=== PATIENT | female | born 1985 | race Caucasian/White ===

== ENCOUNTER 2024-11-09 14:08 | Outpatient (CLI) | payer BC, SELFPAY ==
--- OUTSIDE RECORDS SUMMARY | 2024-11-09 14:13 | XMS_ITS | Clinical Summary ---
Author Organization [facility] Address [address] [place] [address] Care Team Providers Care Telescope Repairer Name Role Phone Ashlee Zhang Primary Care Provider [phone] Allergies No known active allergies Medications multivitamin (MULTI-DAY ORAL) Take by mouth daily Active cetirizine (ZyrTEC) 10 mg capsule Active cholecalciferol , vitD3,/vit K2 (D3 PLUS K2 DOTS ORAL) Take by mouth Activ e levonorgestrel & ethinyl estradiol (AMETHIA) 0.15 mg-30 mcg tablets,dose pack,3 month Take 1 tablet by mouth daily 4 Active testosterone (ANDRODERM) 2 mg/[address] the skin Active aluminum-magnes ium hydroxide suspension 200-200 mg/5 mL Take by mouth every 6 (six) hours as needed for heartburn Active Active Problems Problem Noted Date Diagnosed Date Annual physical exam 10/17/2024 Assessment & Plan (10/17/2024 8:30 AM CDT): Exercise 5 days a week, 30 mins per day recommended. Eat a heart healthy diet consisting of good, healthy protein (eggs, nuts, peanut butter, chicken, fish, turkey, less pork/beef), lots of vegetables, less carbohydrates and less sugar. Annual physical recommended. Perimenopause 10/17/2024 Assessment & Plan (10/17/2024 8:30 AM CDT): Tendinitis 06/19/2011 Encounters Date Type Department Care Team Description 10/17/2024 8:30 AM CDT Lab [facility] [address] [place] [address] Screening for thyroid disorder; Screening, ischemic heart disease; Screening for diabetes mellitus; Screening for blood disease; Encounter for vitamin deficiency screening 10/17/2024 8:00 AM CDT Office Visit [facility] [address] [phone] Ashlee Zhang PA Annual physical exam (Primary Dx); Perimenopause; Screening for thyroid disorder; Screening, ischemic heart disease; Screening for diabetes mellitus; Screening for blood disease; Encounter for vitamin deficiency screening 10/17/2024 Results Follow-Up [facility] [address] [phone] Ashlee Zhang PA Thyroid Function [place], Lipid panel, Comprehensive metabolic panel, Additional followed-up results: 3 08/26/2024 1:30 PM CDT Office Visit [facility] [address] [place] [address] Ana Wheeler MD Perimenopause (Primary Dx); Increased risk of breast cancer from Last 3 Months Immunizations Immunization Administration Dates Next Due Hep A, Adult 04/20/2011 Hep B Vaccine 07/09/2021 Influenza, Unspecified 01/19/2024(Deferr ed: Patient decision),01/18/2023(Deferred: Patient decision) MMR 04/02/1993 Tdap 04/25/2019 Tetanus toxoid, adsorbed 04/20/2005 Surgical History Surgery Date Site/Laterality Comments GANGLION CYST EXCISION Medical History Medical History Date Comments Increased risk of breast cancer 28% per patient. Family History Medical History Relation Name Comments No Known Problems Brother Leukemia Father Ovarian cancer Maternal Grandmother Breast cancer Mother with concurren t hyst due to MGM ovarian cancer Dementia Mother No Known Problems Sister Colon cancer Neg Hx Uterine cancer Neg Hx Relation Name Status Comments Brother Alive Father Alive Maternal Grandfather Maternal Grandmother Mother Alive Paternal Grandfather Paternal Grandmother Sister Alive Social History Tobacco Use Types Packs/Day Years Used Date Smoking Tobacco: Never Smokeless Tobacco: Never Tobacco Cessation:Counseling Given: Not Answered AUDIT-C Answer Date Recorded Q1: How often do you have a drink containing alc ohol? 2-4 times a month 10/17/2024 Q2: How many drinks containi ng alcohol do you have on a typical day when you are drinking? 1 or 2 10/17/2024 Q3: How often do you have si x or more drinks on one occasion? 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 Gender Identity Female 07/14/2022 5:42 PM CDT Sexual Orientation Straight 07/14/2022 5: 42 PM CDT Obstetrics History Para Term AB IAB SAB Ectopic Multiple Livin g Live Births 0 0 0 0 0 0 0 0 0 0 0 Last Filed Vital Signs Vital Sign Reading Time Taken Comments Blood Pressure 110/68 10/17/2024 7:37 AM CDT Pulse 82 10/17/2024 7:37 AM CDT Temperature 36.9 C (98.5 F) 10/17/2024 7:37 AM CDT Respiratory Rate 16 10/17/2024 7:37 AM CDT Oxygen Saturation 97% 10/17/2024 7:37 AM CDT Inhaled Oxygen Concentration - - Weight 76.4 kg (168 lb 8 oz) 10/17/2024 7:37 AM CDT Height 172.7 cm (5' 8) 10/17/2024 7:37 AM CDT Body Mass Index 25.62 10/17/2024 7:37 AM CDT Plan of Treatment Health Maintenance Due Date Last Done Comments Cervical Cancer Screening 1984 Hepatitis C Screening 1984 Varicella Vaccines (1 of 2 - 13+ 2-dose series) 02/22/1997 Influenza Vaccine (#1) 2024 Breast Cancer Screening-Mammogram 01/03/2025 01/04/2024, 10/20/2022, 10/20/2022, Additional history exists Depression Screening 10/17/2025 10/17/2024, 10/18/19 25 Regular Well Visit/Exam 18-64 10/17/2025 10/17/2024 DTaP/Tdap/Td Vaccine (2 - Td or Tdap) 04/25/2029 04/25/2019, 04/20/2005 Hepatitis B Screening Completed 07/09/2021 HPV Vaccines Aged Out No longer eligi ble based on patient's age to complete this topic Pneumococcal vaccine <65 Aged Out No longer eligible based on patient's age to complete this topic Procedures Procedure Name Priority Date/Time Associated Diagnosis Comments EGFR Routine 10/17/2024 8:16 AM CDT Screening for diabetes mellitus VITAMIN D 25 HYDROXY Routine 10/17/2024 8:16 AM CDT Encounter for vitamin deficiency screening CBC WITHOUT DIFFERENTIAL Routine 10/17/2024 8:16 AM CDT Screening for blood disease COMPREHENSIVE METABOLIC PANEL Routine 10/17/2024 8:16 AM CDT Screening for diabetes mellitus LIPID PANEL Routine 10/17/2024 8:16 AM CDT Screening, ischemic heart disease THYROID FUNCTION CASCADE Routine 10/17/2024 8:16 AM CDT Screening for thyroid disorder SCREENING MAMMOGRAM BILATERAL W ARIC Schedule Routine, Read Routine (OP Routine) 01/04/2024 2:28 PM CDT Encounter for other screening for malignant neoplasm of breast from Last 3 Months or Most Recently Relevant to Health Maintenance Results * eGFR (10/17/2024 8:16 AM CDT) eGFR 78 >=60 mL/min/1. 73 m2 Comment: Interpretive Data Reference Interval Normal >/= 90 mL/min/1.73m2 Mildly decreased* 60 - 89 mL/min/1.73m2 Mildly to moderately decreased 45 - 59 mL/min/1.73m2 Moderately to severely decreased 30 - 44 mL/min/1.73m2 Severely decreased 15 - 29 mL/min/1.73m2 Kidney Failure < 15 mL/min/1.73m2 *Relative to young adult level Estimated glomerular filtration rate is determined by the 2020 CKD-EPI equation recommended by the National Kidney Foundation (A Unifying Approach to GFR Estimation: Recommendations of the NKF-ASK Task Force on Reassessing the Inclusion of Race in Diagnosing Kidney Disease, JASN 2020). The CKD-EPI equation should not be used for patients with unstable renal function and has not been validated in children and those over 70. Current interpretive data was last reviewed 2021. Testing performed by: [address] [address] Blood 10/17/2024 8:16 AM CDT 10/17/2024 11:18 AM CDT Ashlee VAZQUEZ LAB BLOOD ORDERABLES Final Resul t Performing Organization Address City/[facility] Co de Phone Number [address] [place] [address] * Thyroid Function [place] (10/17/2024 8:16 AM CDT) TSH 2.05 0.30 - 4.20 mcIUnit/mL Comment:Testing performed by : [address] [address] Blood 10/17/2024 8:16 AM CDT 10/17/2024 11:18 AM CDT Ashlee VAZQUEZ LAB BLOOD ORDERABLES Final Resul t Performing Organization Address City/[facility]/ZIP Co de Phone Number [address] [place] [address] * (ABNORMAL) Vitamin D 25 hydroxy (10/17/2024 8:16 AM CDT) Vitamin D 25-OH 120.0(H) 30.0 - 80.0 ng/mL Blood 10/17/2024 8:16 AM CDT 10/17/2024 12:22 PM CDT us Ashlee VAZQUEZ LAB BLOOD ORDERABLES Final Resul t NAFISA [address] [facility] Department [place] [address] * CBC without differential (10/17/2024 8:16 AM CDT) WBC 6.53 3.80 - 9.90 K/cumm Comment:Testing performed by : [address] [address] Hgb 14.7 11.9 - 15.5 g/dL NAFISA Comment:Testing performed by : [address] [address] Hct 43.1 35.6 - 45.5 % NAFISA Comment:Testing performed by : [address] [address] Plt 249 150 - 400 K/cumm NAFISA Comment:Testing performed by : [address], [address] MPV 10.9 9.1 - 12.3 fL NAFISA Comment:Testing performed by : [address], [address] RBC 4.82 3.90 - 5.20 M/cumm NAFISA Comment:Testing performed by : [address] [address] MCV 89.4 81.3 - 96.4 fL NAFISA Comment:Testing performed by : [address] [address] MCH 30.5 27.1 - 33.3 pg NAFISA Comment:Testing performed by : [address], [address] MCHC 34.1 32.3 - 35.7 g/dL NAFISA Comment:Testing performed by : [address] [address] RDW CV 12.5 11.1 - 14.9 % NAFISA Comment:Testing performed by : [address], [address] RDW SD 40.9 35.7 - 48.1 fL NAFISA WEN Comment:Testing performed by : [facility], [address] [place] [address]., [address] NRBC abs 0.00 0.00 - 0.01 K/cumm NAFISA WEN Comment:Testing performed by : [facility], [address] [place] [address]., [address] Blood 10/17/2024 8:16 AM CDT 10/17/2024 11:18 AM CDT us Ashlee VAZQUEZ LAB BLOOD ORDERABLES Final Resul t NAFISA WEN [address] [facility] Department [place] [address] * (ABNORMAL) Lipid panel (10/17/2024 8:16 AM CDT) Cholesterol 154 30 - 199 mg/dL Comment: Interpretive Data Ages < or = 19 years Acceptable: <170 mg/dL Borderline high: 170-199 mg/dL High: >or= 200 mg/dL Ages > or = 20 years Desirable: <200 mg/dL Borderline high: 200-239 mg/dL High: >or= 240 mg/dL Literature References: 1. Expert Panel on Integrated Guidelines for Cardiovascular Health and Risk Reduction in Children and Adolescents. Pediatrics 2011;128:S213 2. NCEP Expert Panel. Circulation 2004;110:227 Current Interpretive Data was last revised on 2017. Testing performed by: [facility], [address] [place] [address]., [address] Triglycerides 107 <=149 mg/dL NAFISA WEN Comment: Interpretive Data Ages < or = 9 years Acceptable: <75 mg/dL Borderline high: 75-99 mg/dL High: >or= 100 mg/dL Ages 10 to 20 years Acceptable: <90 mg/dL Borderline high: 90-129 mg/dL High: >or= 130 mg/dL Ages > or = 20 years Desirable: <150 mg/dL Borderline high: 150-199 mg/dL High: 200-499 mg/dL Very high: >or= 499 mg/dL Literature References: 1. Expert Panel on Integrated Guidelines for Cardiovascular Health and Risk Reduction in Children and Adolescents. Pediatrics 2011;128:S213 2. NCEP Expert Panel. Circulation 2004;110:227 Current Interpretive Data was last revised on 2017. Testing performed by: [address] [address] HDL 33(L) >=40 mg/dL NAFISA Comment: Interpretive Data Ages < or = 19 years Acceptable: >45 mg/dL Borderline low: 40-45 mg/dL Low: <40 mg/dL Ages > or = 20 years Desirable: >or= 60 mg/dL Low: <40 mg/dL Literature References: 1. Expert Panel on Integrated Guidelines for Cardiovascular Health and Risk Reduction in Children and Adolescents. Pediatrics 2011;128:S213 2. NCEP Expert Panel. Circulation 2004;110:227 Current Interpretive Data was last revised on 2017. Testing performed by: [address] [address] LDL, calculated 101 <=129 mg/dL NAFISA Comment: Interpretive Data Ages < or = 19 years Acceptable: <110 mg/dL Borderline high: 110-129 mg/dL High: >or= 130 mg/dL Ages > or = 20 years Optimal: <100 mg/dL Near optimal: 100-129 mg/dL Borderline high: 130-159 mg/dL High: >160 mg/dL Calculated using the Jorge LDL-C estimating equation. This equation was implemented on 2023. Prior to this date LDL-C was estimated using the Friedewald equation. Literature References: 1. Expert Panel on Integrated Guidelines for Cardiovascular Health and Risk Reduction in Children and Adolescents. Pediatrics 2011;128:S213 2. NCEP Expert Panel. Circulation 2004;110:227 3. Jorge Álvarez et al. CARMEN Cardiol. 2020 August 18;5(5):540-548. doi: 10.1001/[email or web address] Current Interpretive Data was last revised on 2023. Testing performed by: [address] [address] Non-HDL Cholesterol 121 mg/dL NAFISA Comment: Interpretive Data Ages < or = 19 years Acceptable: <120 mg/dL Borderline high: 120-144 mg/dL High: >145 mg/dL Ages > or = 20 years When triglycerides are >200 mg/dL, Non-HDL cholesterol is a secondary target of therapy with treatment goals that are 30 mg/dL greater than the LDL cholesterol target. Literature References: 1. Expert Panel on Integrated Guidelines for Cardiovascular Health and Risk Reduction in Children and Adolescents. Pediatrics 2011;128:S213 2. NCEP Expert Panel. Circulation 2004;110:227 Current Interpretive Data was last revised on 2017. Testing performed by: [address] [address] Chol/HDL ratio 5 NAFISA Comment:Testing performed by : [address] [address] Blood 10/17/2024 8:16 AM CDT 10/17/2024 11:18 AM CDT us Ashlee VAZQUEZ LAB BLOOD ORDERABLES Final Resul t NAFISA [facility] Department [place] [address] * Comprehensive metabolic panel (10/17/2024 8:16 AM CDT) Sodium 139 135 - 145 mmol/L Comment:Testing performed by : [address] [address] Potassium, pl 3.9 3.3 - 4.9 mmol/L NAFISA Comment:Testing performed by : [address] [address] Chloride 105 97 - 110 mmol/L NAFISA Comment:Testing performed by : [address] [address] CO2 25 22 - 32 mmol/L NAFISA Comment:Testing performed by : [address] [address] Anion gap 9 2 - 15 mmol/L NAFISA Comment:Testing performed by : [address] [address] BUN 14 6 - 25 mg/dL NAFISA Comment:Testing performed by : [address] [address] Creatinine 0.95 0.60 - 1.10 mg/dL NAFISA Comment:Testing performed by : [address] [address] Glucose 96 70 - 199 mg/dL NAFISA Comment: Interpretive Data Fasting glucose >/= 126 mg/dl is diagnostic for diabetes. Fasting is defined as no caloric intake for at least 8 hours. Fasting glucose between 100 mg/dl to 125 mg/dl is diagnostic of prediabetes. In a patient with classic symptoms of hyperglycemia or hyperglycemic crisis, a random glucose >/= 200 mg/dl is diagnostic for diabetes. In the absence of unequivocal hyperglycemia, results should be confirmed by repeat testing. The classification and Diagnosis of Diabetes Diabetes Care 202; 46: S19-S40. Current interpretive data was last revised 2022. Testing performed by: [address] [address] Calcium 9.4 8.5 - 10.3 mg/dL NAFISA Comment:Testing performed by : [address] [address] Bilirubin, total 0.3 0.1 - 1.2 mg/dL [employer] [facility] Comment:Testing performed by : [address] [address] Protein, pl 7.4 6.5 - 8.5 g/dL NAFISA Comment:Testing performed by : [address] [address] Albumin 4.1 3.5 - 5.0 g/dL [facility] Comment:Testing performed by : [address] [address] Alk phos 50 40 - 130 Units/L NAFISA Comment:Testing performed by : [address] [address] ALT 16 7 - 45 Units/L NAFISA Comment:Testing performed by : [address] [address] AST 26 10 - 45 Units/L NAFISA Comment:Testing performed by : [address] [address] Blood 10/17/2024 8:16 AM CDT 10/17/2024 11:18 AM CDT Ashlee VAZQUEZ LAB BLOOD ORDERABLES Final Resul t NAFISA [address] [facility] Department [place] [address] * Screening Mammogram Bilateral W Aric (01/04/2024 2:28 PM CDT) Anatomical Region Laterality Modality Breast Bilateral Mammography Impressions 01/07/2024 1:21 PM CDT BI-RADS ATLAS category (overall): 1 - Negative There is no mammographic evidence of malignancy. A 1 year screening mammogram is recommended. The patient has been or will be contacted. We recommend annual screening mammography for women at average risk of breast cancer beginning at age 40, based on guidelines of the [place] [employer] (ACR Practice Parameter for the Performance of Screening and Diagnostic Mammography) and [place] [employer]. For women with and elevated risk of breast cancer, please refer to the ACR Practice Parameter for specific screening recommendations. The patient will be entered into a reminder system with a target due date of 1 year for her next screening exam. Narrative 01/07/2024 1:21 PM CDT Screening Mammogram Bilateral W Aric: 01/04/24 The study was acquired using full field digital technology and interpreted from soft copy. 2D digital mammographic views, as well as 3D digital tomosynthesis were performed in the CC and MLO projections. CLINICAL: Encounter for other screening for malignant neoplasm of breast. No relevant medical history has been documented for this patient. No known family history of breast cancer. COMPARISONS: 10/20/2022 Breast Imaging Screening Outside Reference 10/04/2021 Breast Imaging Screening Outside Reference 09/15/2020 Screening Mammogram Bilateral W Aric 06/01/2019 Screening Mammogram Bilateral W Aric BREAST TISSUE: The breasts are extremely dense, which lowers the sensitivity of mammography. FINDINGS: No suspicious masses, suspicious calcifications, or other suspicious findings are seen within either breast. There has been no suspicious change. 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
--- OUTSIDE RECORDS SUMMARY | 2024-11-09 14:13 | XMS_ITS | Encounter Summary ---
Author Organization [facility] Healthcare Address [address] [place] [address] Care Team Providers Care Eye Specialist Name Role Phone Ashlee Zhang Primary Care Provider [phone] Encounter Details Date Type Department Care Team (Latest Contact Info) Description 10/17/2024 Results Follow-Up [facility] Family Medicine [address] [phone] Ashlee Zhang PA [address] [phone] Thyroid Function [place], Lipid panel, Comprehensive metabolic panel, Additional followed-up results: 3 Social History Tobacco Use Types Packs/Day Years Used Date Smoking Tobacco: Never Smokeless Tobacco: Never AUDIT-C Answer Date Recorded Q1: How often [...] on file 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 2-4 times a month 10/17/2024 7:37 AM Mckayla Pascual MA Q2: How many drinks containing alcohol do you have on a typical day when you are drinking? 1 or 2 10/17/2024 7:37 AM Mckayla Pascual MA Q3: How often do you have six or more drinks on one occasion? Never 10/17/2024 7:37 AM Mckayla Pascual MA documented as of this encounter Plan of Treatment Not on file documented as of this encounter Visit Diagnoses Not on filedocumented in this encounter Care Teams Eye Specialist Relationship Specialty Start Date End Date Ashlee Zhang PA [address] [place] [address] PCP - General Family Medicine 10/17/24 documented as of this encounter
--- OUTSIDE RECORDS SUMMARY | 2024-11-09 14:13 | XMS_ITS | Referral Summary ---
Author Organization [facility] Address [address] [place] [address] Care Team Providers Care French Teacher Name Role Phone Ashlee Zhang Primary Care Provider [phone] Encounters Date Type Department Care Team Description 10/17/2024 Results Follow-Up [facility] Medicine [address] [phone] Ashlee Zhang PA Thyroid Function [place], Lipid panel, Comprehensive metabolic panel, Additional followed-up results: 3 10/17/2024 8:[address] [facility] OP Lab [address] [place] [address] Screening for thyroid disorder; Screening, ischemic heart disease; Screening for diabetes mellitus; Screening for blood disease; Encounter for vitamin deficiency screening 10/17/2024 8:00 AM CDT Office Visit [address] [phone] Ashlee Zhang PA Annual physical exam (Primary Dx); Perimenopause; Screening for thyroid disorder; Screening, ischemic heart disease; Screening for diabetes mellitus; Screening for blood disease; Encounter for vitamin deficiency screening 08/26/2024 1:30 PM CDT Office Visit [facility] [address] [phone] Ana Wheeler MD Perimenopause (Primary Dx); Increased risk of breast cancer from Last 3 Months Allergies No known active allergies Medications multivitamin [...] Plan (10/17/2024 8:30 AM CDT): Tendinitis 06/19/2011 Immunizations Immunization Administration Dates Next Due Hep A, Adult 04/20/2011 Hep B Vaccine 07/09/2021 Influenza, Unspecified 01/19/2024(Deferr ed: Patient decision),01/18/2023(Deferred: Patient decision) MMR 04/02/1993 Tdap 04/25/2019 Tetanus toxoid, adsorbed 04/20/2005 Social History Tobacco Use Types Packs/Day Years [...] on file 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 Testing performed by: [address] [address] Blood 10/17/2024 8:16 AM CDT 10/17/2024 11:18 AM CDT us Ashlee VAZQUEZ LAB BLOOD ORDERABLES Final Resul t KARIMEKOU [address] [facility] [place] [address] * Thyroid Function [place] (10/17/2024 8:16 AM CDT) TSH 2.05 0.30 - 4.20 mcIUnit/mL Comment:Testing performed by : [address] [address] Blood 10/17/2024 8:16 AM CDT 10/17/2024 11:18 AM CDT Ashlee VAZQUEZ LAB BLOOD ORDERABLES Final Resul t Performing Organization Address City/[facility]/ZIP Co de Phone Number NAFISA [address] [address] * (ABNORMAL) Vitamin D 25 hydroxy (10/17/2024 8:16 AM CDT) Pathologist [facility] Vitamin D 25-OH 120.0(H) 30.0 - 80.0 ng/mL Blood 10/17/2024 8:16 AM CDT 10/17/2024 12:22 PM CDT Ashlee VAZQUEZ LAB BLOOD ORDERABLES Final Resul t Performing Organization Address [facility] de Phone Number NAFISA [address] [address] * CBC without differential (10/17/2024 8:16 AM CDT) [facility] WBC 6.53 3.80 - 9.90 K/cumm Comment:Testing performed by : [address] [address] Hgb 14.7 11.9 - 15.5 g/dL NAFISA WEN Comment:Testing performed by : [address] [address] Hct 43.1 35.6 - 45.5 % NAFISA WEN Comment:Testing performed by : [address] [address] Plt 249 150 - 400 K/cumm NAFISA WEN Comment:Testing performed by : [address] [address] MPV 10.9 9.1 - 12.3 fL NAFISA WEN Comment:Testing performed by : [address] [address] RBC 4.82 3.90 - 5.20 M/cumm NAFISA WEN Comment:Testing performed by : [address] [address] MCV 89.4 81.3 - 96.4 fL NAFISA WEN Comment:Testing performed by : [address] [address] MCH 30.5 27.1 - 33.3 pg NAFISA WEN Comment:Testing performed by : [address] [address] MCHC 34.1 32.3 - 35.7 g/dL NAFISA WEN Comment:Testing performed by : [address] [address] RDW CV 12.5 11.1 - 14.9 % NAFISA WEN Comment:Testing performed by : [address] [address] RDW SD 40.9 35.7 - 48.1 fL NAFISA WEN Comment:Testing performed by : [address] [address] NRBC abs 0.00 0.00 - 0.01 K/cumm NAFISA Comment:Testing performed by : [address] [address] Blood 10/17/2024 8:16 AM CDT 10/17/2024 11:18 AM CDT us Ashlee VAZQUEZ LAB BLOOD ORDERABLES Final Resul t NAFISA [address] [facility] Department of Laboratories [place], [place] [phone] * (ABNORMAL) Lipid panel (10/17/2024 8:16 AM [...] last revised on 2017. Testing performed by: [facility], [address] [place] [address]., [address] Triglycerides 107 <=149 mg/dL NAFISA Comment: Interpretive Data Ages < [...] Pediatrics 2011;128:S213 2. NCEP Expert Panel. Circulation 2003;110:227 Current Interpretive Data was last revised on 2017. Testing performed by: [address] [address] HDL 33(L) >=40 mg/dL NAFISA Comment: Interpretive Data Ages < or = 19 years Acceptable: >45 mg/dL Borderline low: 40-45 mg/dL Low: <40 mg/dL Ages > or = 20 years Desirable: >or= 60 mg/dL Low: <40 mg/dL Literature References: 1. Expert Panel on Integrated Guidelines for Cardiovascular Health and Risk Reduction in Children and Adolescents. Pediatrics 2011;128:S213 2. NCEP Expert Panel. Circulation 2003;110:227 Current Interpretive Data was last revised on 2017. Testing performed by: [address] [address] LDL, calculated 101 <=129 mg/dL NAFISA Comment: Interpretive Data Ages < or = 19 years Acceptable: <110 mg/dL Borderline high: 110-129 mg/dL High: >or= 130 mg/dL Ages > or = 20 years Optimal: <100 mg/dL Near optimal: 100-129 mg/dL Borderline high: 130-159 mg/dL High: >160 mg/dL Calculated using the Patel LDL-C estimating equation. This equation was implemented on 2023. Prior to this date LDL-C was estimated using the Friedewald equation. Literature References: 1. Expert Panel on Integrated Guidelines for Cardiovascular Health and Risk Reduction in Children and Adolescents. Pediatrics 2011;128:S213 2. NCEP Expert Panel. Circulation 2004;110:227 3. Jorge M et al. CARMEN Cardiol. 2020 August 18;5(5):540-548. doi: 10.1001/jamacardio.2020.0013 Current Interpretive Data was last revised on 2023. Testing performed by: [address] [address] Non-HDL Cholesterol 121 mg/dL NAFISA WEN Comment: Interpretive Data Ages [...] last revised on 2017. Testing performed by: [address] [address] Chol/HDL ratio 5 NAFISA Comment:Testing performed by : [address] [address] Blood 10/17/2024 8:16 AM CDT 10/17/2024 11:18 AM CDT us Ashlee VAZQUEZ LAB BLOOD ORDERABLES Final Resul t NAFISA [address] [facility] Department [place] [address] * Comprehensive metabolic panel (10/17/2024 8:16 AM CDT) [facility] Sodium 139 135 - 145 mmol/L Comment:Testing performed by : [address] [address] Potassium, pl 3.9 3.3 - 4.9 mmol/L NAFISA WEN Comment:Testing performed by : [address], [place]., [address] Chloride 105 97 - 110 mmol/L NAFISA Comment:Testing performed by : [address], [place]., [address] CO2 25 22 - 32 mmol/L NAFISA Comment:Testing performed by : [address], [place]., [address] Anion gap 9 2 - 15 mmol/L NAFISA Comment:Testing performed by : [address], [place]., [address] BUN 14 6 - 25 mg/dL [facility] Comment:Testing performed by : [address], [place]., [address] Creatinine 0.95 0.60 - 1.10 mg/dL NAFISA Comment:Testing performed by : [address], [place]., [address] Glucose 96 70 - 199 mg/dL NAFISA [...] was last revised 2022. Testing performed by: [address] [address] Calcium 9.4 8.5 - 10.3 mg/dL [facility] Comment:Testing performed by : [address] [address] Bilirubin, total 0.3 0.1 - 1.2 mg/dL NAFISA Comment:Testing performed by : [address], [place]., [address] Protein, pl 7.4 6.5 - 8.5 g/dL NAFISA Comment:Testing performed by : [address] [address] Albumin 4.1 3.5 - 5.0 g/dL NAFISA WEN Comment:Testing performed by : [address] [address] Alk phos 50 40 - 130 Units/L NAFISA WEN Comment:Testing performed by : [address] [address] ALT 16 7 - 45 Units/L NAFISA WEN Comment:Testing performed by : [address] [address] AST 26 10 - 45 Units/L NAFISA Comment:Testing performed by : [address] [address] Blood 10/17/2024 8:16 AM CDT 10/17/2024 11:18 AM CDT us Ashlee VAZQUEZ LAB BLOOD ORDERABLES Final Resul t NAFISA [address] [facility] [place] [address] * Screening Mammogram Bilateral W Aric (01/04/2024 [...] age 40, based on guidelines of the [employer] [employer] (ACR Practice Parameter for the Performance of Screening and Diagnostic Mammography) and [place] [employer]. For women [...] has been no suspicious change. Clarita Aldrich NP IMG MAMMO PROCEDURES Final Result from Last 3 Months or Most Recently Relevant to Health Maintenance Insurance [employer] OPEN ACCESS [employer] [facility] FEDERAL Care Teams French Teacher Relationship Specialty Start Date End Date Ashlee Zhang PA [address] [place] [address] PCP - General Family Medicine 10/17/24
--- OUTSIDE RECORDS SUMMARY | 2024-11-09 14:13 | XMS_ITS | Continuity of Care Document ---
Author Organization [facility] Address [address] [place] [address] Phone Care Team Providers Care Dialysis Social Worker Name Role Phone Darryl Delgado MD, MD Unavailable Unavailable Allergies, Adverse Reactions, Alerts Substance Reaction Status Criticality No Known Drug Allergies Active No I nformation Procedures Procedure Date Medical Record Copy Medical Record Copy Per Page Affidavit Special Narrative Report Office/outpatient visit,est, low 2012 Supplemental Report Medical Record Copy Medical Record Copy Per Page Medical Record Copy Medical Record Copy Per Page Affidavit Office consultation, moderate 2 X-ray exam of elbow, complete 2 Advance Directives Directive Yes / No Effective Date File Name No Information Encounters Encounter Description Practice Location Reason(s) For Visit Diagnoses Date Provider Providers Copied on Encounter [facility] [address] [facility] [address] [place] [address], [id number], [place] tel:[phone] [facility] No Information 4 Danny Andrews. [address] [facility], [address], [place], [place], [id number], [place]. tel:[phone] [facility], [address] [place] [address], [id number], [place] tel:[phone] [facility] No Information 4 Administrati ve Provider. [address] [place] [address], [id number], [place]. tel:[phone] [facility], [address] [place] [address], [id number], [place] tel:[phone] [facility] No Information 3 No Information Office/outpa tient visit,est, low [facility], [address] [place] [address], [id number], [place] tel:[phone] [facility] JOINT PAIN-UP/ARM 3 No Information [facility], [address] [place] [address], [id number], [place] tel:[phone] [facility] No Information 3 Administrati ve Provider. [address] [place] [address], [id number], [place]. tel:[phone] [facility], [address] [place] [address], [id number], [place] tel:[phone] [facility] No Information 2 Administrati ve Provider. [address] [place] [address], [id number], [place]. tel:[phone] Office consultation , moderate [facility], [address] [place] [address], [id number], [place] tel:[phone] [facility] JOINT PAIN-UP/ARMMED IAL EPICONDYLITIS 2 No Information Family History Family Member Type Diagnosis Age At Onset No Information Payers Payer name Insurance type Covered alliance party ID Authoriza tion(s) No Information Social History Type Description Quantity Date Captured Comments Sex Female Smoking Status No Information Chief Complaint And Reason For Visit No Information Reason For Referral Reason For Referral No Information History Of Present Illness Encounter Date Complaint History Of Prese nt Illness No Information Functional Status Date Functional Assessmen t No Information Instructions Date Instruction Additional Infor mation No Information Assessments Type Assessment Date No Information Patient Care Teams Name Effective Dates (start - stop) Status Members No Information
--- OUTSIDE RECORDS SUMMARY | 2024-11-09 14:14 | XMS_ITS | Encounter Summary ---
Author Organization [facility] Address [address] [facility] [place] [address] Care Team Providers Care Psychodramatist Name Role Phone Unavailable Primary Care Provider Unavailabl e Encounter Details Date Type Department Care Team (Late st Contact Info) Description 01/27/2023 Lab Requisition [facility] - DermPath Lab [address] [place] [phone] Kedar Cassidy MD [address] [facility] [place] [address] Social History Tobacco Use Types Packs/Day Years Used Date Smoking Tobacco: Never Assessed Comments Unknown Sex and Gender Information Value Date Recorded Sex Assigned at Not on file 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 Gender Identity Not on file Sexual Orientation Not on file documented as of this encounter Plan of Treatment Not on file documented as of this encounter Procedures Procedure Name Priority Date/Time Associated Diagnosis Comments DERMATOPATHOLOGY Routine 01/27/2023 12:0 0 AM CDT documented in this encounter Results * DERMATOPATHOLOGY (01/27/2023 12:00 AM CDT) Case Report Dermatopathology Report Case: [id number] Authorizing Provider: Kedar Cassidy MD Collected: 01/27/2023 12:00 AM Ordering Location: [facility] DermPath Lab Received: 01/27/2023 08:22 AM Pathologist: Preeti Smith MD Specimen: Skin, right side 3 5:04 PM CDT DERMATOPATHOLOGY LABORATORY Final Diagnosis Specimen A. SKIN, right side: PIGMENTED SEBORRHEIC KERATOSIS (L82.1) 3 5:04 PM CDT DERMATOPATHOLOGY LABORATORY at 1704 CDT Clinical History SK vs Nevus vs MM Path# [id number] 5:04 PM CDT DERMATOPATHOLOGY LABORATORY Gross Description Specimen A: Received is one formalin filled container labeled with the patient's name and designated right side. The specimen consists of a shave biopsy measuring 5x5x2 mm. Jar 0. 5:04 PM CDT DERMATOPATHOLOGY LABORATORY Microscopic Description Specimen A. SKIN, right side: Sections show an acanthotic lesion composed of relatively uniform keratinocytes. There is hyperkeratosis and pseudo horn cysts. Pigment is present in the keratinocytes composing this tumor. 5:04 PM CDT DERMATOPATHOLOGY LABORATORY Disclaimer An external and internal positive and negative controls are appropriate for the histochemical, immunohistochemical and immunofluorescence stain(s) in this case (if any), except where stated explicitly. The performance characteristics of the stain(s) cited in this report were developed and its performance characteristic determined by the Dermatopathology Laboratory at [facility], directed by Dr. Tana Smith. These tests need not be, and therefore are not, approved by the [place] Food and Drug Administration. The tests are used for clinical purposes. Billing Codes Specimen Charges Stain Charges 30307 1 5:04 PM CDT DERMATOPATHOLOGY LABORATORY Embedded Images 5:04 PM CDT DERMATOPATHOLOGY LABORATORY Pathology/Cytolog y TISSUE SPECIMEN FROM SKIN / Unknown 01/27/2023 01/27/2023 8:22 AM CDT Kedar Cassidy MD LAB - PATHOLOGY/CYTOLOGY ORDER ALISA Final Result DERMATOPATHOLOGY LABORATORY [facility] - Department of Dermatology [address] [place] [address], [facility] [phone] documented in this encounter Visit Diagnoses Not on filedocumented in this encounter
--- OUTSIDE RECORDS SUMMARY | 2024-11-09 14:14 | XMS_ITS | Clinical Summary ---
Author Organization [facility] Address [facility] [place] [address] Care Team Providers Care Stemming Machine Operator Name Role Phone None, Provider MD Primary Care Provider Unavaila ble Allergies No known active allergies Medications Levonorgest-Eth Estrad -Day 0.15-0.03 &0.01 MG tablet Take 1 tablet by mouth daily. 10/19/2023 Active metoprolol succinate ER (TOPROL-XL) 25 MG 24 hr tablet Take 1 tablet (25 mg total) by mouth daily. Active LIOTRIX, T3-T4, OR Take by mouth daily. Active Testosterone 2 MG/24HR PATCH 24 HR Active Immunizations Immunization Administration Dates Next Due Hepatitis A (Havrix 1440 [address].U) 04/20/2011 MMR (MMRII) 04/02/1993 Tdap (Generic) 04/25/2019 Tetanus Toxoid Inj 04/20/2005 Family History Medical History Relation Comments Cancer Father leukemia Cancer Maternal Aunt brain tumor Cancer Maternal Grandfather lung cancer / Cancer Maternal Uncle prostate cancer/ Cancer Mother breast cancer None Mother Relation Status Comments Father Alive Maternal Aunt Maternal Grandfather Maternal Uncle Mother Alive Social History Tobacco Use Types Packs/Day Years Used Date Smoking Tobacco: Never Smokeless Tobacco: Never Tobacco Cessation:Counseling Given: No Alcohol Use Standard Drinks/Week Comments Yes 1.7 (1 standard drink = 0.6 oz p ure alcohol) PHQ-2 Answer Date Recorded Patient Health Questionnaire-2 Score 0 12/23/2023 Comments No Sex and Gender Information Value Date Recorded Sex Assigned at Not on file Legal Sex Female 7:12 PM CDT Gender Identity Not on file Sexual Orientation Not on file Last Filed Vital Signs Vital Sign Reading Time Taken Comments Blood Pressure 138/77 04/08/2024 10:28 PM TREAD BUILDER Pulse 88 04/08/2024 10:28 PM TREAD BUILDER Temperature 36.6 C (97.9 F) 04/08/2024 8:50 PM TREAD BUILDER Respiratory Rate 20 04/08/2024 10:28 PM TREAD BUILDER Oxygen Saturation 99% 04/08/2024 10:28 PM TREAD BUILDER Inhaled Oxygen Concentration - - Weight 79.5 kg (175 lb 4.3 oz) 04/08/2024 8:50 P M TREAD BUILDER Height 172.7 cm (5' 8) 04/08/2024 8:50 PM TREAD BUILDER Body Mass Index 26.65 04/08/2024 8:50 PM TREAD BUILDER Plan of Treatment Health Maintenance Due Date Last Done Comments Annual Physical 02/22/1987 Hepatitis C 02/22/2002 HPV Vaccines (1 - 3-dose SCDM series) 02/22/2011 Hepatitis B Vaccines (2 of 3 - 19+ 3-dose series) 08/06/2021 07/09/2021 COVID-19 Vaccine ( season) 2023 06/06/2020, 05/08/2020 PHQ-2 (Physician [place]) 04/20/2024 12/23/2023 Cervical Cancer Screening Pap Smear (Age 30 to 64) Every 3 Years 06/14/2024 06/14/2021 Mammogram Screening 01/03/2026 01/04/2024, 01/04/2024, 10/20/2022, Additional history exists Cervical Cancer Screening Pap with HPV Testing (Age 30 to 64) Every 5 Years 06/14/2026 06/14/2021 Cervical Cancer Screening with HPV 06/14/2026 DTaP, Tdap and Td Vaccines (2 - Td or Tdap) 04/25/2029 04/25/2019, 04/20/2005 Meningococcal B Vaccine Aged Out No l onger eligible based on patient's age to complete this topic Meningococcal Vaccine Aged Out No praful cassandra eligible based on patient's age to complete this topic Pneumococcal Vaccine: Pediatrics (0 to 5 Years) and At-Risk Patients (6 to 49 Years) Aged Out No longer eligible based on patient's age to complete this topic RSV Immunizations Under 20 Months Aged Out No longer eligible based on patient's age to complete this topic Procedures Procedure Name Priority Date/Time Associated Diagnosis Comments MAMMOGRAM GENERIC (SCAN ORDER) 01/04/2024 from Last 3 Months or Most Recently Relevant to Health Maintenance Results * MAMMOGRAM GENERIC (SCAN ORDER) (01/04/2024) Anatomical Region Laterality Modality Other 01/04/2024 us Doc [facility] Scanned SCANNING Final Resu lt from Last 3 Months or Most Recently Relevant to Health Maintenance Insurance [place] [address] Care Teams Stemming Machine Operator Relationship Specialty Start Date End Date None, Provider, PCP - General UNKNOWN PHYSICIAN SPECIALTY 04/08/24
--- OUTSIDE RECORDS SUMMARY | 2024-11-09 14:14 | XMS_ITS | Clinical Summary ---
Author Organization [facility] Address [address] [place] [address] Care Team Providers Care Dredge Master Name Role Phone Unavailable Primary Care Provider Unavailabl e Source Comments [facility] [employer],non-owned Affiliates and Associated Physician Practices is amultiple site organization consisting of ambulatory clinics and hospital sitesin [place], [place] and [place]. This disclosure is being madepursuant to the Care Everywhere program and may not contain all information available regarding this patient. 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 Gender Identity Not on file Sexual Orientation Not on file Plan of Treatment Health Maintenance Due Date Last Done Comments LIPID TESTING 1984 MAMMOGRAM 1984 HIV SCREENING 02/22/1999 HEPATITIS C SCREENING 02/18/2002 DTAP/TDAP/TD VACCINES (1 - Tdap) 02/22/2003 HEPATITIS B VACCINE (1 of 3 - 19+ 3-dose series) 02/22/2003 PAP SMEAR 02/22/2005 HPV VACCINE (1 - 3-dose SCDM series) 02/22/2011 COVID-19 VACCINE ( - 2023-2 5 season) 2023 DEPRESSION SCREENING 04/20/2024 INFLUENZA VACCINE (#1) 2024 ZOSTER VACCINE (1 of 2) 02/22/2034 HIB VACCINE Aged Out No longer eligi ble based on patient's age to complete this topic MENINGOCOCCAL (Group B) VACC INE SHARED DECISION-MAKING Aged Out No longer eligibl e based on patient's age to complete this topic MENINGOCOCCAL GROUPS A/C/Y/W VACCINE Aged Out No longer eligible b ased on patient's age to complete this topic PNEUMOCOCCAL VACCINE Aged Out No long er eligible based on patient's age to complete this topic Insurance GLENNA
[2024-11-09 15:11] LABS: Alanine Aminotransferase 38 U/L (6-35); Albumin Level 4.1 g/dL (3.5-5.1); Alkaline Phosphatase 56 U/L (38-126); Anion Gap 7 mmol/L (4-12); Aspartate Amino Transferase 41 U/L (14-36); Bilirubin,Total 0.2 mg/dL (0.2-1.3); Blood Urea Nitrogen 17 mg/dL (7-17); Calcium 9.3 mg/dL (8.4-10.2); Carbon Dioxide 27 mmol/L (22-30); Chloride 103 mmol/L (98-107); Estimated Glomerular Filt Rate > 60; Glucose 99 mg/dL (65-110); Potassium 3.9 mmol/L (3.4-5.0); Sodium 137 mmol/L (137-145); Total Protein 7.2 g/dL (6.3-8.2)
[2024-11-10 11:08] LABS: FSH 6.4 mIU/mL (.)
[2024-11-11 23:07] LABS: Estrogens, Total 379 pg/mL (.)
[2024-11-12 13:08] LABS: Free Testosterone (Direct) 0.4 pg/mL (0.0-4.2)
== END 2024-11-09 14:09 | disposition home or self-care (01) ==
LOC: ANHLAB 14:09
PROVIDERS: PCP Physician Assistant; Visit Provider Obstetrics & Gynecology
DX: N95.1 Menopausal and female climacteric states (principal)
CPT/HCPCS: 36415; 80053; 82672; 83001; 84402